=== PATIENT | male | born 1965 | race Caucasian/White ===

== ENCOUNTER 2018-01-19 19:13 | Emergency (ER) | payer OTHER ==
[~2018-01-19] VITALS: Ht 185.4 cm; Wt 63.5 kg
[~2018-01-19 19:13] MED LIST: AMOXICILLIN500 MG PO; ANAPROX DS550 MG PO; ATIVAN0.5 MG PO; CATAFLAM50 MG PO; CELEXA20 MG PO; COREG12.5 M1 PO; DEPAKOTE500 M1 PO; FLEXERIL5 MG PO; HYDROCODONE BIT1 T11 PO; LAMICTAL100 MG PO; MEDROL DOSEPAK4 MG PO; MOBIC15 MG PO; MOTRIN800 MG PO; PERCOCET 325 MG1 TA2 PO; REMERON30 MG PO; VICODIN 500 MG-1 TAB PO
[2018-01-19 20:20] LABS: BASO # 0.1 10*3/uL (0.0-0.1); BASO % 0.6 % (0.0-1.0); EOS # 0.2 10*3/uL (0.0-0.4); HEMATOCRIT 43.1 % (42.0-52.0); HEMOGLOBIN 14.5 g/dl (14.0-18.0); LYMPH # 2.2 10*3/uL (1.3-4.4); MEAN CELL VOLUME 104.6 fl (80.0-94.0); MEAN CORPUSCULAR HGB 35.2 pg (27.0-31.0); MEAN CORPUSCULAR HGB CONC 33.6 g/dl (33.0-37.0); MEAN PLATELET VOLUME 9.9 fl (9.6-12.3); MONO # 0.7 10*3/uL (0.1-1.0); MONO % 8.9 % (3.0-9.0); NEUT # 4.9 10*3/uL (2.3-7.9); NEUT % 61.2 % (47.0-73.0); PLATELET COUNT AUTOMATED 247 10*3/uL (130-400); RED BLOOD COUNT 4.12 10*6/uL (4.50-5.90); RED CELL DISTRI WIDTH 13.5 % (0-14.5)
[2018-01-19 20:30] LABS: INTERNATIONAL NORM RATIO 0.9 (2.0-3.5)
[2018-01-19 20:39] LABS: ALBUMIN 2.9 gm/dl (3.1-4.5); ALKALINE PHOSPHATASE 75 U/L (45-117); BUN 6 mg/dl (7-24); CHLORIDE 102 mmol/L (98-107); CREATININE 0.68 mg/dL (0.70-1.30); LIPASE 64 U/L (73-393); POTASSIUM 3.9 mmol/L (3.5-5.1); SGOT/AST 33 IU/L (3-35); SGPT/ALT 22 U/L (12-78); SODIUM 136 mmol/L (136-145)
[2018-01-19 20:40] LABS: ACETAMINOPHEN (TYLENOL) < 2.0 ug/ml (10-30); TROPONIN I < 0.015 ng/ml (<0.045)
[2018-01-19 22:46] LABS: BILIRUBIN NEGATIVE (NEGATIVE); BLOOD NEGATIVE (NEGATIVE); CLARITY CLEAR (CLEAR); COLOR YELLOW (YELLOW); GLUCOSE NEGATIVE (NEGATIVE); KETONE TRACE (NEGATIVE); LEUKO ESTERASE NEGATIVE (NEGATIVE); NITRITE NEGATIVE (NEGATIVE); PH 5.5 (5.0-9.0); SPECIFIC GRAVITY <= 1.005 (1.005-1.030); UROBILINOGEN 0.2 E.U./dl (0.2-1.0)
[2018-01-19 23:08] LABS: BACTERIA TRACE; RBC 0-2 rbc/hpf (0-2)
[2018-01-20 00:09] VITALS: BP 122/83
[2018-01-20 00:18] LABS: URINE AMPHETAMINES < 1000 (1000ng/ml); URINE BARBITURATES < 200 (200ng/ml); URINE BENZODIAZEPINES < 200 (200ng/ml); URINE CANNABINOIDS (THC) > 50 (50ng/ml); URINE COCAINE < 300 (300ng/ml); URINE METHADONE < 300 (300ng/ml); URINE OPIATES > 300 (300ng/ml)
[2018-01-20 00:20] LABS: URINE PHENCYCLIDINE < 25 (25ng/ml)
== END 2018-01-20 00:33 | disposition home or self-care (01) ==
LOC: ED 19:13
PROVIDERS: Physician Assistant
DX: S01.511A Laceration without foreign body of lip, initial encounter (principal); M54.2 Cervicalgia; R56.9 Unspecified convulsions; F17.200 Nicotine dependence, unspecified, uncomplicated; F10.10 Alcohol abuse, uncomplicated; Z79.899 Other long term (current) drug therapy; Y04.0XXA Assault by unarmed brawl or fight, initial encounter; Y93.89 Activity, other specified; Y92.89 Other specified places as the place of occurrence of the external cause; Y99.8 Other external cause status

== ENCOUNTER 2018-03-19 22:10 | Emergency (ER) | payer OTHER ==
[~2018-03-19] VITALS: Ht 185.4 cm; Wt 63.5 kg
[2018-03-19 22:13] VITALS: BP 106/73
[2018-03-19] MEDS ORDERED: NORCO 7.5-3251 EACH PO (22:29)
[2018-03-19] MEDS ORDERED: GABAPENTIN800 MG PO (22:30)
[2018-03-19] MEDS ORDERED: BUSPAR5 MG PO (22:30)
== END 2018-03-19 23:30 | disposition home or self-care (01) ==
LOC: ED 22:10
DX: S93.602A Unspecified sprain of left foot, initial encounter (principal); G62.9 Polyneuropathy, unspecified; Z79.899 Other long term (current) drug therapy; W18.39XA Other fall on same level, initial encounter; Y93.89 Activity, other specified; Y92.89 Other specified places as the place of occurrence of the external cause; Y99.8 Other external cause status

== ENCOUNTER 2018-05-16 16:45 | Emergency (ER) | payer OTHER ==
[~2018-05-16] VITALS: Ht 185.4 cm; Wt 62.1 kg
[~2018-05-16 16:45] MED LIST changes: +BUSPAR5 MG PO; +GABAPENTIN800 MG PO; +NORCO 7.5-3251 EACH PO
[2018-05-16 16:48] VITALS: BP 103/70
[2018-05-16] MEDS ORDERED: IBUPROFEN600 MG PO (19:09)
[2018-07-21] MEDS ORDERED: Motrin,Rufen800 MG PO (01:29)
== END 2018-05-16 19:30 | disposition home or self-care (01) ==
LOC: ED 16:45
DX: S90.31XA Contusion of right foot, initial encounter (principal); Z79.899 Other long term (current) drug therapy; W01.190A Fall on same level from slipping, tripping and stumbling with subsequent striking against furniture, initial encounter; Y93.89 Activity, other specified; Y92.89 Other specified places as the place of occurrence of the external cause; Y99.8 Other external cause status

== ENCOUNTER 2018-07-19 15:22 | Emergency (ER) | payer OTHER ==
[~2018-07-19] VITALS: Ht 177.8 cm; Wt 74.8 kg
[~2018-07-19 15:22] MED LIST changes: +IBUPROFEN600 MG PO
[2018-07-19 15:23] VITALS: BP 121/76
[2018-07-21] MEDS ORDERED: Motrin,Rufen800 MG PO (01:29)
== END 2018-07-19 15:52 | disposition home or self-care (01) ==
LOC: ED 15:22
DX: G89.29 Other chronic pain (principal); G40.909 Epilepsy, unspecified, not intractable, without status epilepticus; G62.9 Polyneuropathy, unspecified; F17.200 Nicotine dependence, unspecified, uncomplicated; Z79.899 Other long term (current) drug therapy

== ENCOUNTER 2018-07-20 12:35 | Emergency (ER) | payer OTHER ==
[~2018-07-20] VITALS: Ht 185.4 cm; Wt 59.0 kg
[2018-07-20 12:35] VITALS: BP 150/99
[2018-07-21] MEDS ORDERED: Motrin,Rufen800 MG PO (01:29)
== END 2018-07-20 12:47 | disposition home or self-care (01) ==
LOC: ED 12:35
DX: G89.29 Other chronic pain (principal); R03.0 Elevated blood-pressure reading, without diagnosis of hypertension; G62.9 Polyneuropathy, unspecified; G40.909 Epilepsy, unspecified, not intractable, without status epilepticus; Z79.899 Other long term (current) drug therapy

== ENCOUNTER 2019-03-11 16:00 | Emergency (ER) | payer OTHER ==
[~2019-03-11] VITALS: Ht 185.4 cm; Wt 61.2 kg
[~2019-03-11 16:00] MED LIST changes: +Motrin,Rufen800 MG PO
[2019-03-11 16:04] VITALS: BP 116/81
== END 2019-03-11 16:46 | disposition left against medical advice (07) ==
LOC: ED 16:00
DX: S90.32XA Contusion of left foot, initial encounter (principal); G62.9 Polyneuropathy, unspecified; F17.200 Nicotine dependence, unspecified, uncomplicated; Z79.899 Other long term (current) drug therapy; W01.0XXA Fall on same level from slipping, tripping and stumbling without subsequent striking against object, initial encounter; Y93.89 Activity, other specified; Y92.89 Other specified places as the place of occurrence of the external cause; Y99.8 Other external cause status

== ENCOUNTER 2019-06-24 19:01 | Inpatient (IN) | payer OTHER ==
[~2019-06-24] VITALS: Ht 185.4 cm; Wt 56.8 kg
[2019-06-24 19:02] VITALS: BP 116/73
[2019-06-24 19:52] LABS: BASO % 0.2 % (0.0-1.0); EOS % 0.2 % (1.0-4.0); HEMATOCRIT 41.9 % (42.0-52.0); HEMOGLOBIN 14.7 g/dl (14.0-18.0); LYMPH # 1.5 10*3/uL (1.3-4.4); LYMPH % 11.3 % (27.0-41.0); MEAN CELL VOLUME 107.7 fl (80.0-94.0); MEAN CORPUSCULAR HGB 37.8 pg (27.0-31.0); MEAN CORPUSCULAR HGB CONC 35.1 g/dl (33.0-37.0); MEAN PLATELET VOLUME 9.5 fl (9.6-12.3); MONO % 7.2 % (3.0-9.0); NEUT # 10.9 10*3/uL (2.3-7.9); NEUT % 80.8 % (47.0-73.0); PLATELET COUNT AUTOMATED 160 10*3/uL (130-400); RED BLOOD COUNT 3.89 10*6/uL (4.50-5.90); RED CELL DISTRI WIDTH 12.6 % (0-14.5); WHITE BLOOD COUNT 13.5 10*3/uL (4.8-10.8)
[2019-06-24 20:17] VITALS: BP 113/76
[2019-06-24 20:20] LABS: ALBUMIN 2.5 gm/dl (3.1-4.5); ALKALINE PHOSPHATASE 102 U/L (45-117); BUN 4 mg/dl (7-24); CHLORIDE 101 mmol/L (98-107); CREATININE 0.52 mg/dL (0.70-1.30); POTASSIUM 3.9 mmol/L (3.5-5.1); SGOT/AST 31 IU/L (3-35); SGPT/ALT 26 U/L (12-78); SODIUM 133 mmol/L (136-145); TOTAL PROTEIN 6.8 gm/dL (6.4-8.2)
[2019-06-24 22:35] VITALS: BP 104/83
[2019-06-24] MEDS ORDERED: PROAIR HFA8.5 GM INH (23:13)
[2019-06-24] MEDS ORDERED: CETIRIZINE HCL10 MG PO (23:13)
[2019-06-24] MEDS ORDERED: NICODERM CQ1 EAC2 T (23:13)
[2019-06-25 06:43] LABS: HEMATOCRIT 45.2 % (42.0-52.0); HEMOGLOBIN 15.5 g/dl (14.0-18.0); MEAN CELL VOLUME 108.7 fl (80.0-94.0); MEAN CORPUSCULAR HGB 37.3 pg (27.0-31.0); MEAN CORPUSCULAR HGB CONC 34.3 g/dl (33.0-37.0); MEAN PLATELET VOLUME 10.2 fl (9.6-12.3); PLATELET COUNT AUTOMATED 170 10*3/uL (130-400); RED BLOOD COUNT 4.16 10*6/uL (4.50-5.90); RED CELL DISTRI WIDTH 12.5 % (0-14.5); WHITE BLOOD COUNT 13.4 10*3/uL (4.8-10.8)
[2019-06-25 07:11] LABS: BUN 4 mg/dl (7-24); CHLORIDE 106 mmol/L (98-107); CHOLESTEROL 117 mg/dL (<200); CREATININE 0.48 mg/dL (0.70-1.30); PHOSPHOROUS 2.8 mg/dL (2.5-4.9); POTASSIUM 3.5 mmol/L (3.5-5.1); SODIUM 137 mmol/L (136-145); TRIGLYCERIDES 67 mg/dl (<150); VLDL CHOLESTEROL 13 mg/dL (6-40)
[2019-06-25 07:13] LABS: HDL CHOLESTEROL 78 mg/dl (40-60); LDL CHOLESTEROL 26 mg/dL (9-159)
[2019-06-25 07:25] LABS: PLATELET SUFFICIENCY NORMAL (NORMAL); TOTAL CELLS COUNTED 100 #CELLS
[2019-06-25 08:00] VITALS: BP 108/74
[2019-06-25 12:00] VITALS: BP 100/63
[2019-06-25] MEDS ORDERED: SEPTDS PO (14:06)
== END 2019-06-25 16:14 | disposition home or self-care (01) | DRG 720 ==
LOC: ED 19:01 → 5E 22:04 → EDHOLD 22:04 → 5E 22:12
PROVIDERS: Emergency Medicine; Student in an Organized Health Care Education/Training Program; ADMIT Internal Medicine
DX: A41.9 Sepsis, unspecified organism (principal); K61.1 Rectal abscess; E87.1 Hypo-osmolality and hyponatremia; R65.20 Severe sepsis without septic shock; D75.89 Other specified diseases of blood and blood-forming organs; E43 Unspecified severe protein-calorie malnutrition; E87.2 Acidosis; G89.29 Other chronic pain; G62.9 Polyneuropathy, unspecified; F41.9 Anxiety disorder, unspecified; F32.9 Major depressive disorder, single episode, unspecified; G40.909 Epilepsy, unspecified, not intractable, without status epilepticus; Z82.49 Family history of ischemic heart disease and other diseases of the circulatory system; Z80.3 Family history of malignant neoplasm of breast; Z68.1 Body mass index [BMI] 19.9 or less, adult; K81.0 Acute cholecystitis; K76.0 Fatty (change of) liver, not elsewhere classified

== ENCOUNTER 2019-07-01 22:40 | Emergency (ER) | payer OTHER ==
[~2019-07-01] VITALS: Ht 185.4 cm; Wt 59.4 kg
[2019-07-01 22:40] VITALS: BP 138/71
[~2019-07-01 22:40] MED LIST changes: +CETIRIZINE HCL10 MG PO; +NICODERM CQ1 EAC2 T; +PROAIR HFA8.5 GM INH; +SEPTDS PO
[2019-07-02] MEDS ORDERED: TRAMADOL HCL50 MG PO (00:04)
== END 2019-07-02 00:16 | disposition home or self-care (01) ==
LOC: ED 22:40
DX: K61.1 Rectal abscess (principal); L02.31 Cutaneous abscess of buttock

== ENCOUNTER 2019-09-28 20:39 | Emergency (ER) | payer OTHER ==
[~2019-09-28] VITALS: Ht 185.4 cm; Wt 59.4 kg
[~2019-09-28 20:39] MED LIST changes: +TRAMADOL HCL50 MG PO
[2019-09-28 20:53] VITALS: BP 112/78
[2019-09-28 21:43] LABS: HEMATOCRIT 37.6 % (42.0-52.0); HEMOGLOBIN 12.8 g/dl (14.0-18.0); MEAN CELL VOLUME 111.2 fl (80.0-94.0); MEAN CORPUSCULAR HGB 37.9 pg (27.0-31.0); MEAN PLATELET VOLUME 9.3 fl (9.6-12.3); PLATELET COUNT AUTOMATED 191 10*3/uL (130-400); RED BLOOD COUNT 3.38 10*6/uL (4.50-5.90); RED CELL DISTRI WIDTH 12.3 % (0-14.5); WHITE BLOOD COUNT 7.5 10*3/uL (4.8-10.8)
[2019-09-28 21:58] LABS: ALBUMIN 2.7 gm/dl (3.1-4.5); ALKALINE PHOSPHATASE 122 U/L (45-117); BUN 3 mg/dl (7-24); CHLORIDE 100 mmol/L (98-107); CREATININE 0.53 mg/dL (0.70-1.30); SGOT/AST 55 IU/L (3-35); SGPT/ALT 31 U/L (12-78); SODIUM 132 mmol/L (136-145); TOTAL PROTEIN 6.4 gm/dL (6.4-8.2)
[2019-09-28 22:01] LABS: BASOPHILS 1 % (0-1); TOTAL CELLS COUNTED 100 #CELLS
[2019-09-28 22:02] LABS: PLATELET SUFFICIENCY NORMAL (NORMAL)
[2019-09-29] MEDS ORDERED: Motrin,Rufen800 MG PO (00:26)
== END 2019-09-29 00:35 | disposition home or self-care (01) ==
LOC: ED 20:39
PROVIDERS: Emergency Medicine Emergency Medical Services
DX: S92.511A Displaced fracture of proximal phalanx of right lesser toe(s), initial encounter for closed fracture (principal); S92.344A Nondisplaced fracture of fourth metatarsal bone, right foot, initial encounter for closed fracture; S02.2XXA Fracture of nasal bones, initial encounter for closed fracture; S90.01XA Contusion of right ankle, initial encounter; S00.83XA Contusion of other part of head, initial encounter; G40.909 Epilepsy, unspecified, not intractable, without status epilepticus; G62.9 Polyneuropathy, unspecified; F17.200 Nicotine dependence, unspecified, uncomplicated; Z79.899 Other long term (current) drug therapy; W18.39XA Other fall on same level, initial encounter; Y93.89 Activity, other specified; Y92.098 Other place in other non-institutional residence as the place of occurrence of the external cause; Y99.8 Other external cause status

== ENCOUNTER 2021-05-20 23:10 | Emergency (ER) | payer MEDICAID ==
[~2021-05-20] VITALS: Ht 185.4 cm; Wt 53.5 kg
[2021-05-20 23:16] VITALS: BP 119/81
[2021-05-21] MEDS ORDERED: METHOCARBAMOL500 M1 PO (01:31)
[2021-05-21] MEDS ORDERED: SEPTDS PO (01:31)
== END 2021-05-21 01:59 | disposition home or self-care (01) ==
LOC: ED 23:10
DX: L02.31 Cutaneous abscess of buttock (principal); Z79.899 Other long term (current) drug therapy; F17.200 Nicotine dependence, unspecified, uncomplicated

== ENCOUNTER → 2021-07-02 | Outpatient (CLI) | payer MEDICAID ==
[~2021-07-02] MED LIST changes: +METHOCARBAMOL500 M1 PO
== END | disposition home or self-care (01) ==
LOC: LAB 14:21 → US 14:30
PROVIDERS: ATTEND Family Medicine
DX: I83.891 Varicose veins of right lower extremity with other complications (principal); R59.0 Localized enlarged lymph nodes

== ENCOUNTER → 2022-10-21 | Outpatient (CLI) | payer MEDICAID ==
[~2022-10-21] MED LIST changes: +FUROSEMIDE20 M1 PO; +HYDROCODONE-AC1 EAC2 PO; +MUCINEX ER600 MG PO; +NATURE'S BLEND F1 MG PO; +PREDNISONE10 MG PO; +VITAMIN B-1100 M1 PO; +ZITHROMAX TRI-500 M1 PO
[2022-10-21 14:19] LABS: HEMATOCRIT 31.3 % (42.0-52.0); MEAN CELL VOLUME 115.9 fl (80.0-94.0); MEAN CORPUSCULAR HGB 39.3 pg (27.0-31.0); MEAN CORPUSCULAR HGB CONC 33.9 g/dl (33.0-37.0); MEAN PLATELET VOLUME 9.3 fl (9.6-12.3); PLATELET COUNT AUTOMATED 191 10*3/uL (130-400); RED CELL DISTRI WIDTH 14.8 % (0-14.5)
[2022-10-21 14:33] LABS: MANUAL DIFF REFLEX YES
[2022-10-21 14:51] LABS: ALKALINE PHOSPHATASE 119 U/L (46-116); CHLORIDE 101 mmol/L (98-107); SGPT/ALT 20 U/L (10-49)
[2022-10-21 14:54] LABS: BUN < 5 mg/dl (9-23)
[2022-10-21 15:24] LABS: PLATELET SUFFICIENCY NORMAL (NORMAL); TOTAL CELLS COUNTED 100 #CELLS
== END | disposition home or self-care (01) ==
LOC: LAB 13:17
PROVIDERS: ATTEND Family Medicine
DX: D53.0 Protein deficiency anemia (principal); D50.0 Iron deficiency anemia secondary to blood loss (chronic); R53.83 Other fatigue